=== PATIENT | male | born 1995 | race Caucasian/White ===

== ENCOUNTER 2017-09-24 01:40 | Emergency (ER) | payer SELFPAY ==
[2017-09-24 01:46] VITALS: TEMP 98.1
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
[2017-09-24 02:13] VITALS: BP 138/89; PULSE 84; RESP 16; O2SAT 96
== END 2017-09-24 02:13 ==
DX: R04.0 Epistaxis (principal); Y04.0XXA Assault by unarmed brawl or fight, initial encounter; Y92.89 Other specified places as the place of occurrence of the external cause; Y93.89 Activity, other specified